=== PATIENT | female | born 1980 | race Caucasian/White ===

== ENCOUNTER 2021-11-29 15:55 | Emergency (ER) | payer MEDICAID | END 2021-11-29 17:15 | disposition home or self-care (01) | LOC: CC.ED 15:55 | DX: S61.212A Laceration without foreign body of right middle finger without damage to nail, initial encounter (principal); S63.501A Unspecified sprain of right wrist, initial encounter; W26.8XXA Contact with other sharp object(s), not elsewhere classified, initial encounter | CPT/HCPCS: 73110-RT; 73130-RT; 99283; 99283-25 ==

== ENCOUNTER 2022-03-15 09:43 | Emergency (ER) | payer MEDICAID ==
[2022-03-15] MEDS ORDERED: Aspirin 81 MG Tab.Chew PO STA (09:54)
[2022-03-15 10:20] LABS: CHLORIDE,CL 101 mEq/L (98-106); SODIUM,NA 138 mEq/L (136-145)
[2022-03-15] MEDS ORDERED: Ondansetron 4 MG Tab.DIS PO ONE (10:21)
[2022-03-15 10:25] LABS: ESTIMATED GFR 64 mL/min (>=60)
== END 2022-03-15 11:15 | disposition home or self-care (01) ==
LOC: CC.ED 09:43
DX: M25.512 Pain in left shoulder (principal); M54.12 Radiculopathy, cervical region; Z88.0 Allergy status to penicillin
CPT/HCPCS: 36415; 71046; 80053; 84484; 85025; 86140; 93005; 99284; A9270

== ENCOUNTER 2022-07-10 17:59 | Emergency (ER) | payer MEDICAID ==
[~2022-07-10 17:59] MED LIST: Morphine 2 MG/ML SYRINGE ONE; Ondansetron 4 MG/2 ML SDV ONE
[2022-07-10] MEDS ORDERED: Ondansetron 4 MG/2 ML SDV IVPUSH STA (18:14)
[2022-07-10] MEDS ORDERED: Morphine 2 MG/ML SYRINGE IVPUSH ONE (18:15)
[2022-07-10 18:51] LABS: CHLORIDE,CL 104 mEq/L (98-106); SODIUM,NA 139 mEq/L (136-145)
[2022-07-10 18:56] LABS: ESTIMATED GFR 82 mL/min (>=60)
[2022-07-10] MEDS ORDERED: Ketorolac 30 MG/ML SDV IVPUSH ONE (18:58)
[2022-07-10] MEDS ORDERED: Take Home: Acetaminophen/HYDROcodone 325-5 MG, 2 Tab Pack PO ONE (21:19)
[2022-07-10] MEDS ORDERED: Take Home: Cyclobenzaprine 10 MG Tab, 4 Tab Pack PO ONE (21:19)
== END 2022-07-10 21:50 | disposition home or self-care (01) ==
LOC: CC.ED 17:59
DX: R07.81 Pleurodynia (principal); M25.512 Pain in left shoulder; Z88.0 Allergy status to penicillin
CPT/HCPCS: 36415; 71045; 80053; 83690; 83735; 84484; 85025; 85379; 86140; 93005; 93010; 96374; 96375; 99284; 99285-25; A9270-GY; J1885; J2270; J2405